=== PATIENT | male | born 1955 | race African-American/Black ===

== ENCOUNTER → 2017-04-04 | Emergency (ER) | payer OTHER ==
[~2017-04-04] VITALS: Ht 162.6 cm; Wt 72.6 kg
[~2017-04-04] MED LIST: Bacitracin Oint UD TOPIC ONE; CEPHALEXIN500 MG ORAL; Lidocaine 1% MPF 10mg/ml 5ml IM ONE; Lidocaine 1% MPF 10mg/ml 5ml ONE; Polysporin Oint 30gm TOPIC SCH
--- NOTE | 2017-04-04 12:58 | Emergency Room Report ---
History of Present Illness General Chief Complaint: Skin Rash/Abscess Source: Patient Present Illness HPI 61 y/o male c/o painful left great toe x 3 days. Assoc sxs include erythema, pustular drainage from the nailbed, and tenderness to touch. States he thinks he may have an ingrowing nail and denies any trauma or injury to area. Patient states he has full sensation of great toe and has FROM. Patient denies any numbness, tingling, pressure, paralysis, cyanosis, bruising, loss of sensation, or loss of range of motion. Allergies: Coded Allergies: VANCOMYCIN (Verified Allergy, Unknown, 04/04/17) Patient History Past Medical History: see triage record Past Surgical History: none Pertinent Family History: none Immunizations: UTD Reviewed Nursing Documentation: PMH: Agreed, PSxH: Agreed Nursing Documentation-PMH Past Medical History: No History, Except For Hx Diabetes: Yes Review of Systems All Other Systems: negative except mentioned in HPI Physical Exam Vital Signs Date Time Temp Pulse Resp B/P Pulse Ox O2 Delivery O2 Flow Rate FiO2 04/04/17 12:28 98.2 73 20 115/63 99 Room Air Sp02 EP Interpretation: reviewed, normal General Appearance: no apparent distress, alert, GCS 15, non-toxic Head: normocephalic, atraumatic Eyes: bilateral eye normal inspection ENT: normal ENT inspection Respiratory: no respiratory distress, other - Patient with stoma present Cardiovascular #1: normal peripheral pulses, normal capillary refill Musculoskeletal: back normal, gait/station normal, normal range of motion, non- tender Neurologic: alert, oriented x3, responsive, motor strength/tone normal, sensory intact, speech normal Psychiatric: judgement/insight normal, memory normal, mood/affect normal, no suicidal/homicidal ideation Skin: normal color, warm/dry, well hydrated, other - Left great toe with erythema, tenderness, warmth and there is pustular drainage present in the nailbed. Lymphatic: no adenopathy Procedures Additional Procedure Procedure Narrative Risks and benefits discussed with patient and consent was obtained. Using a 25g needle, 1% lido w/o epi was injected into the base of the great toe and good anesthesia was obtained. Using a needle sales route driver helper, the toenail was lifted and from the nail bed and in a rolling fashion was removed complete. Hemostasis was achieved with directed pressure. There was minimal blood loss. The wound was then covered with bacitracin ointment and covered with telfa and Kerlix. The patient tolerated procedure well without complications. Medical Decision Making PA Attestation Dr. Soto my supervising physician with whom patient management has been discussed with. Diagnostic Impression: Primary Impression: Ingrowing toenail with infection Additional Impression: Cellulitis of great toe of left foot ER Course Pt. presents to the ED c/o left great toe pain Ddx considered but are not limited to cellulitis, osteomyelitis, ingrowing toenail, paronychia, trauma Vital signs: are WNL, pt. is afebrile H&PE are most consistent with infected ingrowing toenail ORDERS: Lidocaine 1% w/o epi, suture tray, wound care ED INTERVENTIONS: toenail removal of left great toe DISCHARGE: At this time pt. is stable for d/c to home. Will provide printed patient care instructions, and any necessary prescriptions. Care plan and follow up instructions have been discussed with the patient prior to discharge. Last Vital Signs Date Time Temp Pulse Resp B/P Pulse Ox O2 Delivery O2 Flow Rate FiO2 04/04/17 12:28 98.2 73 20 115/63 99 Room Air Status: unchanged Disposition: HOME, SELF-CARE Condition: Improved Scripts Cephalexin* (KEFLEX*) 500 Mg Capsule 500 MG ORAL EVERY 12 HOURS, #14 CAP 0 Refills Prov: KHOA LEIGH.Albert 04/04/17 KHOA LEIGH Apr 04, 2017 12:58
[2017-04-04 12:59] VITALS: BP 115/63
[2017-04-04 15:29] VITALS: BP 123/79
== END | disposition home or self-care (01) ==
LOC: EDBD 12:31 → EMR 13:12
DX: L60.0 Ingrowing nail (principal); L03.032 Cellulitis of left toe; E11.9 Type 2 diabetes mellitus without complications; Z88.8 Allergy status to other drugs, medicaments and biological substances
CPT/HCPCS: 99283

== ENCOUNTER 2017-04-20 11:55 | Emergency (ER) | payer OTHER ==
[~2017-04-20] VITALS: Ht 165.1 cm; Wt 94.8 kg
[~2017-04-20 11:55] MED LIST changes: -Bacitracin Oint UD TOPIC ONE; -Lidocaine 1% MPF 10mg/ml 5ml IM ONE; -Lidocaine 1% MPF 10mg/ml 5ml ONE; -Polysporin Oint 30gm TOPIC SCH
[2017-04-20 12:11] VITALS: BP 132/78
[2017-04-20] MEDS ORDERED: CHLORHEXIDINE118 M1 TP (12:11)
[2017-04-20] MEDS ORDERED: MILK OF MA400 MG/51 ORAL (12:11)
[2017-04-20] MEDS ORDERED: FISH OIL 1,2001 EAC3 PO (12:11)
[2017-04-20] MEDS ORDERED: ATROVENT HFA12.9 GM IH (12:11)
[2017-04-20] MEDS ORDERED: ASPIR-LOW81 MG ORAL (12:11)
[2017-04-20] MEDS ORDERED: METFORMIN HCL500 M1 ORAL (12:11)
[2017-04-20] MEDS ORDERED: CRANBERRY450 M4 PO (12:11)
[2017-04-20] MEDS ORDERED: COLCHICINE25 GM MC (12:11)
[2017-04-20] MEDS ORDERED: OMEPRAZOLE20 M3 ORAL (12:11)
[2017-04-20] MEDS ORDERED: TYLENOL EXTRA500 MG ORAL (12:11)
[2017-04-20] MEDS ORDERED: COREG25 MG ORAL (12:11)
[2017-04-20] MEDS ORDERED: COLACE100 MG ORAL (12:11)
[2017-04-20] MEDS ORDERED: BENAZEPRIL HCL10 MG ORAL (12:11)
[2017-04-20] MEDS ORDERED: IBUPROFEN600 MG ORAL (12:11)
[2017-04-20] MEDS ORDERED: SIMVASTATIN20 MG ORAL (12:11)
[2017-04-20] MEDS ORDERED: ALBUTEROL SULF8.5 GM INH (12:11)
[2017-04-20] MEDS ORDERED: LASIX40 MG ORAL (12:11)
[2017-04-20 14:41] VITALS: BP 135/81
[2017-04-20 14:42] VITALS: BP 135/81
--- NOTE | 2017-04-21 06:43 | Emergency Room Report ---
History of Present Illness General Chief Complaint: Eye Problems Source: Patient Present Illness HPI 62-year-old male presents ED for evaluation. Patient resides [facility]. Patient has a trach, however is ambulatory. Patient is complaining of seeing spots in both eyes for the last week. On and off. The pain. Denies any change in visual acuity. Denies any photophobia or blurry vision. Denies any headaches. States it is "annoying". States this has happened in the past however has since resolved. No other aggravating or relieving factors. Denies any other associated symptoms Allergies: Coded Allergies: VANCOMYCIN (Verified Allergy, Unknown, 04/04/17) Patient History Past Medical History: DM Past Surgical History: other - trach Pertinent Family History: none Social History: Denies: alcohol use, drug use, smoking Immunizations: UTD Reviewed Nursing Documentation: PMH: Agreed, PSxH: Agreed Nursing Documentation-PMH Hx Diabetes: Yes Review of Systems All Other Systems: negative except mentioned in HPI Physical Exam Vital Signs Date Time Temp Pulse Resp B/P Pulse Ox O2 Delivery O2 Flow Rate FiO2 04/20/17 11:41 98.2 71 20 128/76 94 Room Air Sp02 EP Interpretation: reviewed, normal General Appearance: no apparent distress, alert, GCS 15, non-toxic Head: normocephalic, atraumatic Eyes: bilateral eye PERRL, bilateral eye normal inspection, bilateral eye visual acuity ENT: hearing grossly normal, normal pharynx, no angioedema, normal voice Neck: full range of motion, supple/symm/no masses, tracheotomy Respiratory: chest non-tender, lungs clear, normal breath sounds, speaking full sentences Cardiovascular #1: regular rate, rhythm, no edema Cardiovascular #2: 2+ carotid (R), 2+ carotid (L), 2+ radial (R), 2+ radial (L) , 2+ dorsalis pedis (R), 2+ dorsalis pedis (L) Gastrointestinal: normal bowel sounds, non tender, soft, non-distended, no guarding, no rebound Rectal: deferred Genitourinary: normal inspection, no CVA tenderness Musculoskeletal: back normal, gait/station normal, normal range of motion, non- tender Neurologic: alert, oriented x3, responsive, motor strength/tone normal, sensory intact, speech normal Psychiatric: judgement/insight normal, memory normal, mood/affect normal, no suicidal/homicidal ideation Reflexes: 3+ bicep (R), 3+ bicep (L), 3+ tricep (R), 3+ tricep (L), 3+ knee (R) , 3+ knee (L) Skin: normal color, no rash, warm/dry, well hydrated Lymphatic: no adenopathy Medical Decision Making Diagnostic Impression: Primary Impression: Vitreous floaters of both eyes ER Course 62-year-old male presents ED complaining of seeing spots in both eyes Differential-floaters, conjunctivitis, glaucoma Patient placed on stretcher. After initial history physical exam reveals an elderly male in no acute distress. There is no change in visual acuity. Pelvic exam is otherwise unremarkable. Patient has no pain I see no reason for emergent evaluation at this time. Discussed case with Dr. Medina (Opthalmology); he agreed that patient can be discharged back to facility and be seen as outpatient in his office Discussed case with PMD Dr. Thurman and he agreed that patient can be safely discharged back to facility. Spoke to patient and he agrees that he will followup with ophthalmology as outpatient Diagnoses-floaters in both eyes Stable and discharged to SNF. Followup with ophthalmology. Return to ED if symptoms recur or worsen Last Vital Signs Date Time Temp Pulse Resp B/P Pulse Ox O2 Delivery O2 Flow Rate FiO2 04/20/17 14:42 98.3 77 17 135/81 96 Room Air Status: improved Disposition: HOME, SELF-CARE Condition: Stable Referrals: CHAVO MEDINA Patient Instructions: Eye Floaters JUAN MORENO M.D. Apr 21, 2017 06:43
== END 2017-04-20 14:43 | disposition home or self-care (01) ==
LOC: EDBD 11:55 → EMR 12:10
DX: H43.393 Other vitreous opacities, bilateral (principal); E11.9 Type 2 diabetes mellitus without complications
CPT/HCPCS: 99283